=== PATIENT | female | born 1935 | race Caucasian/White ===

== ENCOUNTER → 2017-04-05 | Outpatient (CLI) | payer MEDICARE ==
[2017-04-04 13:46] LABS: HEMATOCRIT 39.8 % (34.6-47.8); HEMOGLOBIN 13.1 g/dL (11.7-16.4); WHITE BLOOD COUNT 7.6 x10^3/uL (3.4-10)
[2017-04-04 13:48] LABS: ASPARTATE AMINO TRANSFERASE 29 U/L (15-37); BLOOD UREA NITROGEN 52 mg/dL (7-18)
[~2017-04-05] VITALS: Ht 157.5 cm; Wt 51.9 kg
[~2017-04-05] MED LIST: CLON-364 PO; DOCU-144 PO; EPINEPHRINE 1 MG/ML, 1ML ONE; FURO-93 PO; KETOROLAC 60 MG/2 ML ONE; LACTATED RINGERS 1,000 ML IV SCH; LEVO100T5 PO; LIDOCAINE 1%, 2ML ONE; LIDOCAINE 1%, 2ML SQ PRN; LOSA50TA6 PO; METO50TA82 PO; PANT40TA5 PO; POTA10TA31 PO; ROPIvacaine/PF 0.2%, 20 ML ONE; SODIUM CHLORIDE 0.9% 0 ML ONE; SPIR25TA3 PO; TRANEXAMIC ACID 100 MG/ML, 10ML ONE; VANCOMYCIN PER PHARMACY MC STA; VANCOMYCIN PMX 1GM/200ML 200 ML IV ONE; WARF5TAB7 PO; [UNRECOGNIZED DRUG - REMARK] PO; morphine SULFATE/PF 1 MG/ML, 10ML ONE
[2017-04-05 08:03] VITALS: BP 107/72
[2017-04-05 08:53] LABS: ASPARTATE AMINO TRANSFERASE 32 U/L (15-37); BLOOD UREA NITROGEN 57 mg/dL (7-18)
== END | disposition home or self-care (01) ==
LOC: ORIP 07:00 → UNDOADMIN 07:00 → OUT 07:00 → UNDODISIN 09:59 → EDSTATUS 10:00
PROVIDERS: ATTEND Orthopaedic Surgery
DX: Z01.818 Encounter for other preprocedural examination (principal); M17.12 Unilateral primary osteoarthritis, left knee; R79.1 Abnormal coagulation profile
CPT/HCPCS: 36415; 80053; 85025; 85610; 85730; 93005; J2795; J3490; J7120; J0171; J1885; J2274